=== PATIENT | male | born 1960 | race Caucasian/White ===

== ENCOUNTER 2018-04-14 17:54 | Inpatient (IN) | payer OTHER, MEDICAID ==
[~2018-04-14] VITALS: Ht 170.2 cm; Wt 103.9 kg
[2018-04-14 18:50] VITALS: BP_SYST 144
[2018-04-14] MEDS ORDERED: ACET325C4 PO (19:33)
[2018-04-14] MEDS ORDERED: OXYB5TAB11 PO (19:33)
[2018-04-14] MEDS ORDERED: GABA-533 PO (19:33)
[2018-04-14] MEDS ORDERED: GABA-531 PO (19:33)
[2018-04-14] MEDS ORDERED: BISA5TAB10 PO (19:33)
[2018-04-14] MEDS ORDERED: CRAN1TAB5 PO (19:33)
[2018-04-14] MEDS ORDERED: TAMS-11 PO (19:33)
[2018-04-14] MEDS ORDERED: DOCU-144 PO (19:33)
[2018-04-14] MEDS ORDERED: AMAN100C16 PO (19:33)
[2018-04-14] MEDS ORDERED: PSYL1POW MC (19:33)
[2018-04-14] MEDS ORDERED: MELA3TAB PO (19:33)
[2018-04-14] MEDS ORDERED: MOM PO (19:33)
[2018-04-14] MEDS ORDERED: CHOL500037 PO (19:33)
[2018-04-14] MEDS ORDERED: LACT10SO6 PO (19:33)
[2018-04-14] MEDS ORDERED: BISA-79 PO (19:33)
[2018-04-14] MEDS ORDERED: INSU100I26 SQ (19:33)
[2018-04-14 19:38] VITALS: BP_SYST 144
[2018-04-14] MEDS ORDERED: INSULIN REGULAR, HUMAN 100 UNITS/ML, 10 ML VIAL (novoLIN R) SUBCUT PRN (20:30)
[2018-04-14] MEDS ORDERED: CEFEPIME 1 GM/VIAL (MAXIPIME) ONE (21:04)
[2018-04-14 21:12] LABS: BASOPHILS % (AUTO) 0.3 % (0.0-2.0); EOSINOPHILS # (AUTO) 0.1 K/uL (0.0-0.4); EOSINOPHILS % (AUTO) 1.8 % (0.0-4.0); HEMATOCRIT 46.8 % (36-54); HEMOGLOBIN 15.4 g/dL (14.0-18.0); LYMPHOCYTES # (AUTO) 0.7 K/uL (1.0-5.5); MEAN CORPUSCULAR HEMOGLOBIN 30 pg (27-31); MEAN CORPUSCULAR HGB CONC 33 % (32-36); MEAN CORPUSCULAR VOLUME 92 fL (79.0-98.0); MONOCYTES # (AUTO) 0.3 K/uL (0.0-1.0); NEUTROPHILS # (AUTO) 2.7 K/uL (1.8-7.7); NEUTROPHILS % (AUTO) 72.9 % (40.0-70.0); RED BLOOD CELL COUNT(AUTO) 5.08 MIL/uL (4.2-6.2); RED CELL DISTRIBUTION WIDTH 13.5 % (9.0-15.0); WHITE BLOOD COUNT (AUTO) 3.8 K/uL (4.8-10.8)
[2018-04-14 21:13] LABS: BILIRUBIN,URINE NEGATIVE (NEGATIVE); BLOOD, URINE TRACE (NEGATIVE); CLARITY/URINE HAZY (CLEAR); COLOR,URINE YELLOW (YELLOW); GLUCOSE,URINE 3+ (NEGATIVE); KETONES,URINE TRACE (NEGATIVE); LEUKOCYTE ESTERASE ,URINE 1+ (NEGATIVE); NITRITE, URINE NEGATIVE (NEGATIVE); PH,URINE 5.5 (5.0-8.0); PROTEIN URINE NEGATIVE (NEGATIVE)
[2018-04-14 21:14] LABS: BACTERIA,URINE FEW /HPF (None Seen); MUCUS,URINE None Seen /LPF (None Seen); RBC,URINE NONE SEEN /HPF (0-3)
[2018-04-14 21:20] LABS: CALCIUM 8.9 mg/dL (8.4-11.0); CREATININE 0.86 mg/dL (0.55-1.30); POTASSIUM 4.9 mmol/L (3.5-5.1)
[2018-04-14 21:25] LABS: ALBUMIN 3.2 g/dL (3.4-4.8); TOTAL BILIRUBIN 1.1 mg/dL (0.0-1.0)
[2018-04-14] MEDS: NYSTATIN 30 GM TOPICAL CREAM TP SCH (21:30)
[2018-04-14] MEDS ORDERED: MILK OF MAGNESIA 30 ML UDC PO PRN (21:30)
[2018-04-14] MEDS ORDERED: BISACODYL 5 MG TABLET.DR (DULCOLAX) PO PRN (21:30)
[2018-04-14] MEDS ORDERED: ACETAMINOPHEN 325 MG TABLET PO PRN (21:30)
[2018-04-14 21:37] LABS: PLATELET COUNT (AUTO) 85 K/uL (130-430)
[2018-04-14] MEDS: KCL 20 mEq in D5/0.45NS 1000mL 1,000 ML IV SCH (22:35)
[2018-04-14] MEDS: CEFEPIME 1 GM in D5W 50 ML IV SCH (22:36)
[2018-04-14 22:47] VITALS: BP_SYST 124
[2018-04-14] MEDS: INSULIN REGULAR, HUMAN 100 UNITS/ML, 10 ML VIAL (novoLIN R) SUBCUT PRN (23:26)
[2018-04-15] MEDS ORDERED: TEMAZEPAM 15 MG CAPSULE PO ONE (00:15)
[2018-04-15] MEDS: INSULIN REGULAR, HUMAN 100 UNITS/ML, 10 ML VIAL (novoLIN R) SUBCUT PRN ×4 (05:46→23:31)
[2018-04-15 08:00] VITALS: BP_SYST 108
[2018-04-15] MEDS: OXYBUTYNIN CHLORIDE 5 MG TABLET PO SCH (08:36)
[2018-04-15] MEDS: AMANTADINE HCL 100 MG CAP PO SCH ×2 (08:37→20:34)
[2018-04-15] MEDS: CHOLECALCIFEROL (VITAMIN D3) 2,000 UNIT TABLET PO SCH (08:37)
[2018-04-15] MEDS: DOCUSATE SODIUM 100 MG CAPSULE PO SCH ×2 (08:37→20:34)
[2018-04-15] MEDS: VALSARTAN 160 MG TABLET (DIOVAN) PO SCH (08:37)
[2018-04-15] MEDS: LACTULOSE 20 GM/30 ML UDC PO SCH ×2 (08:38→20:34)
[2018-04-15] MEDS: CEFEPIME 1 GM in D5W 50 ML IV SCH ×2 (08:42→20:33)
[2018-04-15] MEDS ORDERED: ENOXAPARIN SODIUM 40 MG/0.4 ML SYRINGE SUBCUT SCH (09:00)
[2018-04-15 11:26] VITALS: BP_SYST 134
[2018-04-15] MEDS: KCL 20 mEq in D5/0.45NS 1000mL 1,000 ML IV SCH (11:27)
[2018-04-15 15:27] VITALS: BP_SYST 127
[2018-04-15] MEDS: NYSTATIN 30 GM TOPICAL CREAM TP SCH ×2 (16:06→20:33)
[2018-04-15] MEDS: FLUCONAZOLE 100 mg/ NS 50 ML IV SCH (16:06)
[2018-04-15] MEDS: GABAPENTIN 300 MG CAPSULE PO SCH (20:33)
[2018-04-15] MEDS: TAMSULOSIN HCL 0.4 MG CAP PO SCH (20:34)
[2018-04-15] MEDS: MELATONIN 3 MG PO SCH (20:38)
[2018-04-15] MEDS ORDERED: ENOXAPARIN SODIUM 30 MG/0.3 ML SYRINGE SUBCUT SCH (21:00)
[2018-04-16 00:22] VITALS: BP_SYST 128
[2018-04-16] MEDS: INSULIN REGULAR, HUMAN 100 UNITS/ML, 10 ML VIAL (novoLIN R) SUBCUT PRN ×3 (05:48→17:26)
[2018-04-16] MEDS: KCL 20 mEq in D5/0.45NS 1000mL 1,000 ML IV SCH ×2 (05:49→14:40)
[2018-04-16 07:30] VITALS: BP_SYST 113
[2018-04-16] MEDS: CEFEPIME 1 GM in D5W 50 ML IV SCH ×2 (08:15→20:44)
[2018-04-16] MEDS: DOCUSATE SODIUM 100 MG CAPSULE PO SCH ×2 (08:15→20:44)
[2018-04-16] MEDS: AMANTADINE HCL 100 MG CAP PO SCH ×2 (08:16→20:44)
[2018-04-16] MEDS: VALSARTAN 160 MG TABLET (DIOVAN) PO SCH (08:16)
[2018-04-16] MEDS: OXYBUTYNIN CHLORIDE 5 MG TABLET PO SCH (08:16)
[2018-04-16] MEDS: NYSTATIN 30 GM TOPICAL CREAM TP SCH ×2 (08:17→20:44)
[2018-04-16] MEDS: CHOLECALCIFEROL (VITAMIN D3) 2,000 UNIT TABLET PO SCH (08:17)
[2018-04-16] MEDS: LACTULOSE 20 GM/30 ML UDC PO SCH ×2 (08:18→20:45)
[2018-04-16] MEDS: FLUCONAZOLE 100 mg/ NS 50 ML IV SCH (10:12)
[2018-04-16 11:22] VITALS: BP_SYST 104
[2018-04-16 16:27] VITALS: BP_SYST 115
[2018-04-16 20:00] VITALS: BP_SYST 142
[2018-04-16] MEDS: GABAPENTIN 300 MG CAPSULE PO SCH (20:44)
[2018-04-16] MEDS: TAMSULOSIN HCL 0.4 MG CAP PO SCH (20:44)
[2018-04-16] MEDS: MELATONIN 3 MG PO SCH (21:00)
[2018-04-16] MEDS ORDERED: TEMAZEPAM 15 MG CAPSULE PO PRN (21:45)
[2018-04-17 00:02] VITALS: BP_SYST 115
[2018-04-17] MEDS: KCL 20 mEq in D5/0.45NS 1000mL 1,000 ML IV SCH ×2 (02:53→17:18)
[2018-04-17] MEDS: INSULIN REGULAR, HUMAN 100 UNITS/ML, 10 ML VIAL (novoLIN R) SUBCUT PRN ×3 (05:33→17:24)
[2018-04-17] MEDS: CEFEPIME 1 GM in D5W 50 ML IV SCH (09:51)
[2018-04-17] MEDS: LACTULOSE 20 GM/30 ML UDC PO SCH (09:51)
[2018-04-17] MEDS: DOCUSATE SODIUM 100 MG CAPSULE PO SCH (09:51)
[2018-04-17] MEDS: CHOLECALCIFEROL (VITAMIN D3) 2,000 UNIT TABLET PO SCH (09:53)
[2018-04-17] MEDS: OXYBUTYNIN CHLORIDE 5 MG TABLET PO SCH (09:53)
[2018-04-17] MEDS: VALSARTAN 160 MG TABLET (DIOVAN) PO SCH (09:53)
[2018-04-17] MEDS: AMANTADINE HCL 100 MG CAP PO SCH (09:53)
[2018-04-17] MEDS: NYSTATIN 30 GM TOPICAL CREAM TP SCH (09:54)
[2018-04-17 10:25] VITALS: BP_SYST 109
[2018-04-17] MEDS: FLUCONAZOLE 100 mg/ NS 50 ML IV SCH (11:20)
[2018-04-17 12:54] VITALS: BP_SYST 124
[2018-04-17 16:30] VITALS: BP_SYST 126
[2018-04-17 19:38] VITALS: BP_SYST 118
== END 2018-04-17 20:55 | DRG 871 ==
LOC: SMU 19:01 → STU 19:08 → SMU 04-15 17:00
PROVIDERS: ADMIT Family Medicine; ATTEND Family Medicine
DX: A41.9 Sepsis, unspecified organism (principal); G93.41 Metabolic encephalopathy; N39.0 Urinary tract infection, site not specified; D61.818 Other pancytopenia; B36.9 Superficial mycosis, unspecified; Z87.440 Personal history of urinary (tract) infections; N40.0 Benign prostatic hyperplasia without lower urinary tract symptoms; E11.9 Type 2 diabetes mellitus without complications; I10 Essential (primary) hypertension
CPT/HCPCS: 36415; 76770; 80053; 81000-TC; 82962; 85025; 87081; 87086; G0378; J0692; J1450; J1815; J7060

== ENCOUNTER 2019-04-03 19:47 | Inpatient (IN) | payer OTHER, MEDICAID ==
[~2019-04-03] VITALS: Ht 170.2 cm; Wt 102.1 kg
[~2019-04-03 19:47] MED LIST: ACET325C6 PO; AMAN100C16 PO; BISA-79 PO; CHOL500037 PO; CRAN1TAB5 PO; DOCU-144 PO; GABA-531 PO; GABA-533 PO; INSU100I26 SQ; LACT10SO6 PO; MELA3TAB64 PO; MOM PO; OXYB5TAB11 PO; PSYL1POW MC; TAMS-11 PO
[2019-04-03 20:01] VITALS: BP_SYST 149
[2019-04-03] MEDS ORDERED: ACETAMINOPHEN 500 MG TABLET PO ONE (21:00)
[2019-04-03] MEDS ORDERED: cefTRIAXone 1 GM in D5W 50 ML IV ONE (21:00)
[2019-04-03] MEDS ORDERED: NACL 0.9% 1,000 ML IV ONE ×2 (21:00→22:15)
[2019-04-03] MEDS ORDERED: cefTRIAXone 1 GM VIAL ONE (21:22)
[2019-04-03 22:04] LABS: BASOPHILS % (AUTO) 0.3 % (0.0-2.0); EOSINOPHILS % (AUTO) 0.6 % (0.0-4.0); HEMATOCRIT 30.5 % (36-54); HEMOGLOBIN 10.3 g/dL (14.0-18.0); LYMPHOCYTES # (AUTO) 0.3 K/uL (1.0-5.5); LYMPHOCYTES % (AUTO) 5.5 % (20.5-51.5); MEAN CORPUSCULAR HEMOGLOBIN 28 pg (27-31); MEAN CORPUSCULAR HGB CONC 34 % (32-36); MEAN CORPUSCULAR VOLUME 82 fL (79.0-98.0); MONOCYTES # (AUTO) 0.4 K/uL (0.0-1.0); MONOCYTES % (AUTO) 8.5 % (1.7-9.3); NEUTROPHILS # (AUTO) 4.1 K/uL (1.8-7.7); NEUTROPHILS % (AUTO) 85.1 % (40.0-70.0); PLATELET COUNT (AUTO) 107 K/uL (130-430); RED BLOOD CELL COUNT(AUTO) 3.72 MIL/uL (4.2-6.2); RED CELL DISTRIBUTION WIDTH 16.3 % (9.0-15.0); WHITE BLOOD COUNT (AUTO) 4.8 K/uL (4.8-10.8)
[2019-04-03] MEDS ORDERED: AZITHROMYCIN 500 MG in NS 250 ML IV ONE (22:15)
[2019-04-03 22:23] LABS: CALCIUM 8.1 mg/dL (8.4-11.0); CREATININE 0.76 mg/dL (0.55-1.30); POTASSIUM 3.8 mmol/L (3.5-5.1)
[2019-04-03 22:28] LABS: ALBUMIN 2.5 g/dL (3.4-4.8); TOTAL BILIRUBIN 1.1 mg/dL (0.0-1.0)
[2019-04-03 22:54] LABS: BILIRUBIN,URINE NEGATIVE (NEGATIVE); BLOOD, URINE 1+ (NEGATIVE); CLARITY/URINE CLEAR (CLEAR); COLOR,URINE YELLOW (YELLOW); GLUCOSE,URINE TRACE (NEGATIVE); KETONES,URINE NEGATIVE (NEGATIVE); LEUKOCYTE ESTERASE ,URINE TRACE (NEGATIVE); NITRITE, URINE POSITIVE (NEGATIVE); PH,URINE 5.5 (5.0-8.0); PROTEIN URINE TRACE (NEGATIVE); UROBILINOGEN,URINE 0.2 (0.2-1.0)
[2019-04-03 23:01] LABS: WBC,URINE 50-80 /HPF (0-3)
[2019-04-03 23:02] LABS: BACTERIA,URINE MANY /HPF (None Seen)
[2019-04-04] MEDS ORDERED: KCL 20 mEq in D5/0.45NS 1000mL 1,000 ML IV ONE (01:00)
[2019-04-04] MEDS ORDERED: AZITHROMYCIN 500 MG/VIAL (ZITHROMAX) IV ONE ×2 (01:09→01:24)
[2019-04-04] MEDS ORDERED: LACT10SO7 PO (01:53)
[2019-04-04] MEDS ORDERED: INSU100I20 SQ (01:53)
[2019-04-04] MEDS: LevALBUTEROL HCL 1.25 MG/0.5 ML *CONC.* VIAL.NEB (XOPENEX CONC.) INH SCH ×4 (02:39→18:00)
[2019-04-04 08:47] VITALS: BP_SYST 106
[2019-04-04 09:00] VITALS: BP_SYST 132
[2019-04-04] MEDS: ACETAMINOPHEN 325 MG TABLET PO PRN (09:53)
[2019-04-04] MEDS ORDERED: FLUCONAZOLE 200 MG TABLET (DIFLUCAN) PO ONE (12:30)
[2019-04-04] MEDS: GENTAMICIN 80 MG/ ISO-OSM 100 ML PREMIX IV SCH (13:48)
[2019-04-04] MEDS ORDERED: OXYBUTYNIN CHLORIDE 5 MG TABLET PO ONE (14:00)
[2019-04-04] MEDS ORDERED: AMANTADINE HCL 100 MG CAP PO ONE (14:00)
[2019-04-04] MEDS ORDERED: GLUCOSE 15 GM GEL (in 37.5 GM TUBE) PO PRN (14:00)
[2019-04-04] MEDS ORDERED: LACTULOSE 20 GM/30 ML UDC PO ONE (14:00)
[2019-04-04] MEDS ORDERED: DOCUSATE SODIUM 100 MG CAPSULE PO ONE (14:00)
[2019-04-04] MEDS ORDERED: D5W 1,000 ML IV PRN (14:00)
[2019-04-04] MEDS ORDERED: GABAPENTIN 300 MG CAPSULE PO ONE (14:00)
[2019-04-04] MEDS ORDERED: DEXTROSE 50%-WATER 50 ML DISP.SYRIN IVP PRN (14:00)
[2019-04-04 17:17] VITALS: BP_SYST 151
[2019-04-04] MEDS: INSULIN REGULAR, HUMAN 100 UNITS/ML, 10 ML VIAL (humuLIN R) SUBCUT PRN ×2 (18:11→23:16)
[2019-04-04 20:00] VITALS: BP_SYST 124
[2019-04-04] MEDS: LACTULOSE 20 GM/30 ML UDC PO SCH (21:48)
[2019-04-04] MEDS: TAMSULOSIN HCL 0.4 MG CAP PO SCH (21:49)
[2019-04-04] MEDS: ENOXAPARIN SODIUM 40 MG/0.4 ML SYRINGE SUBCUT SCH (21:51)
[2019-04-04] MEDS: AZITHROMYCIN 500 MG in NS 250 ML IV SCH (22:07)
[2019-04-04] MEDS: GABAPENTIN 300 MG CAPSULE PO SCH (22:11)
[2019-04-04] MEDS: MELATONIN 3 MG TABLET PO SCH (22:11)
[2019-04-04] MEDS: NYSTATIN 15 GM TOPICAL POWDER TP SCH (22:12)
[2019-04-04] MEDS: AMANTADINE HCL 100 MG CAP PO SCH (22:12)
[2019-04-04] MEDS: cefTRIAXone 1 GM IVPB PREMIX 50 ML IV SCH (23:04)
[2019-04-04] MEDS: INSULIN GLARGINE 100 UNITS/ML 10 ML VIAL SUBCUT SCH (23:15)
[2019-04-05] MEDS ORDERED: HALOPERIDOL LACTATE 5 MG/ML VIAL IM SCH
[2019-04-05] MEDS: GENTAMICIN 80 MG/ ISO-OSM 100 ML PREMIX IV SCH ×4 (00:07→22:21)
[2019-04-05 01:15] VITALS: BP_SYST 137
[2019-04-05] MEDS: LevALBUTEROL HCL 1.25 MG/0.5 ML *CONC.* VIAL.NEB (XOPENEX CONC.) INH SCH ×4 (06:00→19:25)
[2019-04-05 08:00] VITALS: BP_SYST 115
[2019-04-05] MEDS ORDERED: LevALBUTEROL HCL 1.25 MG/0.5 ML *CONC.* VIAL.NEB (XOPENEX CONC.) INH ONE ×2 (08:44→16:29)
[2019-04-05] MEDS: NYSTATIN 15 GM TOPICAL POWDER TP SCH ×2 (09:08→22:20)
[2019-04-05] MEDS: LACTULOSE 20 GM/30 ML UDC PO SCH ×2 (09:09→21:40)
[2019-04-05] MEDS: GABAPENTIN 300 MG CAPSULE PO SCH ×2 (09:09→21:46)
[2019-04-05] MEDS: DOCUSATE SODIUM 100 MG CAPSULE PO SCH (09:09)
[2019-04-05] MEDS: AMANTADINE HCL 100 MG CAP PO SCH ×2 (09:09→21:40)
[2019-04-05] MEDS: OXYBUTYNIN CHLORIDE 5 MG TABLET PO SCH (09:10)
[2019-04-05] MEDS: FLUCONAZOLE 200 MG TABLET (DIFLUCAN) PO SCH (09:10)
[2019-04-05] MEDS: INSULIN GLARGINE 100 UNITS/ML 10 ML VIAL SUBCUT SCH ×2 (09:12→22:18)
[2019-04-05] MEDS: ACETAMINOPHEN 325 MG TABLET PO PRN ×2 (09:39→15:27)
[2019-04-05] MEDS ORDERED: HALOPERIDOL LACTATE 5 MG/ML VIAL IM ONE (10:45)
[2019-04-05] MEDS ORDERED: HALOPERIDOL LACTATE 5 MG/ML VIAL ONE (10:49)
[2019-04-05] MEDS: INSULIN REGULAR, HUMAN 100 UNITS/ML, 10 ML VIAL (humuLIN R) SUBCUT PRN ×2 (11:27→17:29)
[2019-04-05 12:25] VITALS: BP_SYST 127
[2019-04-05] MEDS ORDERED: QUEtiapine FUMARATE 25 MG TABLET PO ONE (12:45)
[2019-04-05] MEDS: QUEtiapine FUMARATE 25 MG TABLET PO SCH ×2 (15:03→21:46)
[2019-04-05] MEDS: HALOPERIDOL LACTATE 5 MG/ML VIAL IM PRN (15:18)
[2019-04-05 16:10] VITALS: BP_SYST 164
[2019-04-05 16:54] LABS: BASOPHILS % (AUTO) 0.1 % (0.0-2.0); EOSINOPHILS % (AUTO) 0.1 % (0.0-4.0); HEMATOCRIT 29.8 % (36-54); HEMOGLOBIN 9.8 g/dL (14.0-18.0); LYMPHOCYTES # (AUTO) 0.2 K/uL (1.0-5.5); LYMPHOCYTES % (AUTO) 5.6 % (20.5-51.5); MEAN CORPUSCULAR HEMOGLOBIN 27 pg (27-31); MEAN CORPUSCULAR HGB CONC 33 % (32-36); MEAN CORPUSCULAR VOLUME 83 fL (79.0-98.0); MONOCYTES # (AUTO) 0.2 K/uL (0.0-1.0); MONOCYTES % (AUTO) 6.3 % (1.7-9.3); NEUTROPHILS # (AUTO) 3.2 K/uL (1.8-7.7); NEUTROPHILS % (AUTO) 87.9 % (40.0-70.0); PLATELET COUNT (AUTO) 56 K/uL (130-430); RED BLOOD CELL COUNT(AUTO) 3.59 MIL/uL (4.2-6.2); RED CELL DISTRIBUTION WIDTH 16.2 % (9.0-15.0); WHITE BLOOD COUNT (AUTO) 3.6 K/uL (4.8-10.8)
[2019-04-05 17:09] LABS: CALCIUM 7.8 mg/dL (8.4-11.0); POTASSIUM 3.9 mmol/L (3.5-5.1)
[2019-04-05 17:15] LABS: ALBUMIN 2.4 g/dL (3.4-4.8); TOTAL BILIRUBIN 1.7 mg/dL (0.0-1.0)
[2019-04-05] MEDS ORDERED: 0.45% NACL 1,000 ML IV SCH (17:16)
[2019-04-05] MEDS: NACL 0.9% 1,000 ML IV SCH (17:58)
[2019-04-05 20:55] VITALS: BP_SYST 115
[2019-04-05] MEDS: cefTRIAXone 1 GM IVPB PREMIX 50 ML IV SCH (21:14)
[2019-04-05] MEDS: TAMSULOSIN HCL 0.4 MG CAP PO SCH (21:46)
[2019-04-05] MEDS: ENOXAPARIN SODIUM 40 MG/0.4 ML SYRINGE SUBCUT SCH (22:36)
[2019-04-05] MEDS: MELATONIN 3 MG TABLET PO SCH (22:47)
[2019-04-05] MEDS: AZITHROMYCIN 500 MG in NS 250 ML IV SCH (22:48)
[2019-04-06] MEDS: INSULIN REGULAR, HUMAN 100 UNITS/ML, 10 ML VIAL (humuLIN R) SUBCUT PRN ×5 (00:05→21:05)
[2019-04-06 00:43] VITALS: BP_SYST 104
[2019-04-06] MEDS: GENTAMICIN 80 MG/ ISO-OSM 100 ML PREMIX IV SCH ×3 (05:15→20:59)
[2019-04-06] MEDS: NACL 0.9% 1,000 ML IV SCH ×2 (05:16→15:04)
[2019-04-06 06:19] LABS: HEMATOCRIT 29.5 % (36-54); HEMOGLOBIN 9.6 g/dL (14.0-18.0); MEAN CORPUSCULAR HEMOGLOBIN 27 pg (27-31); MEAN CORPUSCULAR HGB CONC 33 % (32-36); MEAN CORPUSCULAR VOLUME 83 fL (79.0-98.0); PLATELET COUNT (AUTO) 54 K/uL (130-430); RED BLOOD CELL COUNT(AUTO) 3.56 MIL/uL (4.2-6.2); RED CELL DISTRIBUTION WIDTH 16.6 % (9.0-15.0); WHITE BLOOD COUNT (AUTO) 2.9 K/uL (4.8-10.8)
[2019-04-06 07:27] LABS: ALBUMIN 2.3 g/dL (3.4-4.8); CALCIUM 7.7 mg/dL (8.4-11.0); CREATININE 0.88 mg/dL (0.55-1.30); PHOSPHORUS 2.2 mg/dL (2.7-4.5); POTASSIUM 3.8 mmol/L (3.5-5.1); TOTAL BILIRUBIN 1.4 mg/dL (0.0-1.0)
[2019-04-06 07:31] LABS: ATYPICAL LYMPHOCYTES % 0 % (0-0); BAND % (MANUAL) 6 % (0-6); BASOPHILS % (MANUAL) 0 % (0-2); EOSINOPHILS % (MANUAL) 0 % (0-7); LYMPHOCYTES % (MANUAL) 8 % (20-46); MONOCYTES % (MANUAL) 8 % (0-11)
[2019-04-06] MEDS: LevALBUTEROL HCL 1.25 MG/0.5 ML *CONC.* VIAL.NEB (XOPENEX CONC.) INH SCH ×4 (07:41→19:34)
[2019-04-06 08:00] VITALS: BP_SYST 122
[2019-04-06] MEDS: AMANTADINE HCL 100 MG CAP PO SCH ×2 (08:43→20:35)
[2019-04-06] MEDS: FLUCONAZOLE 200 MG TABLET (DIFLUCAN) PO SCH (08:43)
[2019-04-06] MEDS: GABAPENTIN 300 MG CAPSULE PO SCH ×2 (08:44→20:36)
[2019-04-06] MEDS: QUEtiapine FUMARATE 25 MG TABLET PO SCH ×3 (08:44→20:41)
[2019-04-06] MEDS: OXYBUTYNIN CHLORIDE 5 MG TABLET PO SCH (08:44)
[2019-04-06] MEDS: NYSTATIN 15 GM TOPICAL POWDER TP SCH ×2 (08:44→20:55)
[2019-04-06] MEDS: INSULIN GLARGINE 100 UNITS/ML 10 ML VIAL SUBCUT SCH ×2 (08:47→21:02)
[2019-04-06] MEDS: LACTULOSE 20 GM/30 ML UDC PO SCH ×2 (09:00→20:43)
[2019-04-06] MEDS ORDERED: QUEtiapine FUMARATE 25 MG TABLET PO SCH (09:00)
[2019-04-06] MEDS: DOCUSATE SODIUM 100 MG CAPSULE PO SCH (09:00)
[2019-04-06 12:39] VITALS: BP_SYST 127
[2019-04-06 16:53] VITALS: BP_SYST 124
[2019-04-06 20:00] VITALS: BP_SYST 122
[2019-04-06] MEDS: ENOXAPARIN SODIUM 40 MG/0.4 ML SYRINGE SUBCUT SCH (20:35)
[2019-04-06] MEDS: ACETAMINOPHEN 325 MG TABLET PO PRN (20:38)
[2019-04-06] MEDS: TAMSULOSIN HCL 0.4 MG CAP PO SCH (20:38)
[2019-04-06] MEDS: MELATONIN 3 MG TABLET PO SCH (20:39)
[2019-04-06] MEDS: AZITHROMYCIN 500 MG in NS 250 ML IV SCH (21:06)
[2019-04-06] MEDS ORDERED: IPRATROPIUM/ALBUTEROL SULFATE 3 ML AMPUL.NEB (DUONEB) INH PRN (22:15)
[2019-04-06] MEDS: IPRATROPIUM/ALBUTEROL SULFATE 3 ML AMPUL.NEB (DUONEB) INH SCH (22:33)
[2019-04-06] MEDS: methylPREDNISolone SOD SUCC/PF 62.5 MG/ML VIAL IVP SCH (22:43)
[2019-04-07] VITALS (7 sets, daily range): BP systolic 102–120
[2019-04-07] MEDS: NACL 0.9% 1,000 ML IV SCH ×3 (03:37→14:57)
[2019-04-07] MEDS: methylPREDNISolone SOD SUCC/PF 62.5 MG/ML VIAL IVP SCH ×3 (05:35→22:13)
[2019-04-07] MEDS: GENTAMICIN 80 MG/ ISO-OSM 100 ML PREMIX IV SCH ×3 (05:36→22:17)
[2019-04-07] MEDS: INSULIN REGULAR, HUMAN 100 UNITS/ML, 10 ML VIAL (humuLIN R) SUBCUT PRN ×4 (05:43→21:30)
[2019-04-07] MEDS: IPRATROPIUM/ALBUTEROL SULFATE 3 ML AMPUL.NEB (DUONEB) INH SCH ×2 (07:23→13:53)
[2019-04-07] MEDS: QUEtiapine FUMARATE 25 MG TABLET PO SCH ×3 (08:07→21:24)
[2019-04-07] MEDS: GABAPENTIN 300 MG CAPSULE PO SCH ×2 (08:07→21:25)
[2019-04-07] MEDS: AMANTADINE HCL 100 MG CAP PO SCH ×2 (08:07→21:25)
[2019-04-07] MEDS: OXYBUTYNIN CHLORIDE 5 MG TABLET PO SCH (08:08)
[2019-04-07] MEDS: LACTULOSE 20 GM/30 ML UDC PO SCH ×2 (08:08→21:24)
[2019-04-07] MEDS: DOCUSATE SODIUM 100 MG CAPSULE PO SCH (08:08)
[2019-04-07] MEDS: FLUCONAZOLE 200 MG TABLET (DIFLUCAN) PO SCH (08:08)
[2019-04-07] MEDS: INSULIN GLARGINE 100 UNITS/ML 10 ML VIAL SUBCUT SCH ×2 (08:10→21:29)
[2019-04-07] MEDS: NYSTATIN 15 GM TOPICAL POWDER TP SCH ×2 (08:11→21:24)
[2019-04-07] MEDS: LORazepam 1 MG TABLET PO PRN (17:26)
[2019-04-07] MEDS ORDERED: INSULIN REGULAR, HUMAN 100 UNITS/ML, 10 ML VIAL SUBCUT ONE ×2 (17:30→22:00)
[2019-04-07] MEDS: LevALBUTEROL HCL 1.25 MG/0.5 ML *CONC.* VIAL.NEB (XOPENEX CONC.) INH SCH ×2 (19:36)
[2019-04-07] MEDS: TAMSULOSIN HCL 0.4 MG CAP PO SCH (21:24)
[2019-04-07] MEDS: AZITHROMYCIN 500 MG in NS 250 ML IV SCH (21:26)
[2019-04-07] MEDS: MELATONIN 3 MG TABLET PO SCH (21:26)
[2019-04-07] MEDS: ENOXAPARIN SODIUM 40 MG/0.4 ML SYRINGE SUBCUT SCH (21:28)
[2019-04-08] VITALS: BP_SYST 112
[2019-04-08] MEDS: GENTAMICIN 80 MG/ ISO-OSM 100 ML PREMIX IV SCH ×3 (05:58→21:22)
[2019-04-08] MEDS: methylPREDNISolone SOD SUCC/PF 62.5 MG/ML VIAL IVP SCH (05:58)
[2019-04-08] MEDS: INSULIN REGULAR, HUMAN 100 UNITS/ML, 10 ML VIAL (humuLIN R) SUBCUT PRN ×4 (05:59→20:24)
[2019-04-08] MEDS: LevALBUTEROL HCL 1.25 MG/0.5 ML *CONC.* VIAL.NEB (XOPENEX CONC.) INH SCH ×4 (06:00→18:00)
[2019-04-08] MEDS: NACL 0.9% 1,000 ML IV SCH ×2 (06:02→17:29)
[2019-04-08 06:33] LABS: BASOPHILS % (AUTO) 0.1 % (0.0-2.0); EOSINOPHILS % (AUTO) 0.1 % (0.0-4.0); HEMATOCRIT 27.9 % (36-54); HEMOGLOBIN 9.1 g/dL (14.0-18.0); LYMPHOCYTES # (AUTO) 0.2 K/uL (1.0-5.5); LYMPHOCYTES % (AUTO) 7.6 % (20.5-51.5); MEAN CORPUSCULAR HEMOGLOBIN 27 pg (27-31); MEAN CORPUSCULAR HGB CONC 33 % (32-36); MEAN CORPUSCULAR VOLUME 83 fL (79.0-98.0); MONOCYTES # (AUTO) 0.1 K/uL (0.0-1.0); MONOCYTES % (AUTO) 3.7 % (1.7-9.3); NEUTROPHILS # (AUTO) 1.7 K/uL (1.8-7.7); PLATELET COUNT (AUTO) 56 K/uL (130-430); RED BLOOD CELL COUNT(AUTO) 3.36 MIL/uL (4.2-6.2); RED CELL DISTRIBUTION WIDTH 17.1 % (9.0-15.0)
[2019-04-08 06:58] LABS: ALBUMIN 2.1 g/dL (3.4-4.8); CALCIUM 7.9 mg/dL (8.4-11.0); CREATININE 0.67 mg/dL (0.55-1.30); POTASSIUM 4.4 mmol/L (3.5-5.1); TOTAL BILIRUBIN 0.7 mg/dL (0.0-1.0)
[2019-04-08] MEDS: IPRATROPIUM/ALBUTEROL SULFATE 3 ML AMPUL.NEB (DUONEB) INH SCH ×3 (07:01→20:11)
[2019-04-08 07:23] VITALS: BP_SYST 107
[2019-04-08 07:38] LABS: NEUTROPHILS % (AUTO) 88.5 % (40.0-70.0)
[2019-04-08] MEDS: GABAPENTIN 300 MG CAPSULE PO SCH ×2 (08:03→20:17)
[2019-04-08] MEDS: OXYBUTYNIN CHLORIDE 5 MG TABLET PO SCH (08:03)
[2019-04-08] MEDS: FLUCONAZOLE 200 MG TABLET (DIFLUCAN) PO SCH (08:03)
[2019-04-08] MEDS: AMANTADINE HCL 100 MG CAP PO SCH ×2 (08:03→20:17)
[2019-04-08] MEDS: LACTULOSE 20 GM/30 ML UDC PO SCH ×2 (08:04→20:17)
[2019-04-08] MEDS: QUEtiapine FUMARATE 25 MG TABLET PO SCH ×3 (08:04→20:17)
[2019-04-08] MEDS: DOCUSATE SODIUM 100 MG CAPSULE PO SCH ×3 (08:04→20:17)
[2019-04-08] MEDS: NYSTATIN 15 GM TOPICAL POWDER TP SCH ×2 (08:05→20:26)
[2019-04-08] MEDS: INSULIN GLARGINE 100 UNITS/ML 10 ML VIAL SUBCUT SCH ×4 (08:07→20:23)
[2019-04-08] MEDS ORDERED: BISACODYL 10 MG/SUPPOSITORY RC PRN (08:45)
[2019-04-08] MEDS ORDERED: MILK OF MAGNESIA 30 ML UDC PO PRN (08:45)
[2019-04-08 09:01] VITALS: BP_SYST 107
[2019-04-08] MEDS: HALOPERIDOL LACTATE 5 MG/ML VIAL IM PRN (09:58)
[2019-04-08 11:35] VITALS: BP_SYST 116
[2019-04-08 16:34] VITALS: BP_SYST 122
[2019-04-08] MEDS ORDERED: INSULIN REGULAR, HUMAN 100 UNITS/ML, 10 ML VIAL SUBCUT ONE (17:15)
[2019-04-08] MEDS: methylPREDNISolone SOD SUCC 40 MG/ML VIAL IVP SCH (18:03)
[2019-04-08 20:00] VITALS: BP_SYST 118
[2019-04-08] MEDS: TAMSULOSIN HCL 0.4 MG CAP PO SCH (20:17)
[2019-04-08] MEDS: MELATONIN 3 MG TABLET PO SCH (20:19)
[2019-04-08] MEDS: ENOXAPARIN SODIUM 40 MG/0.4 ML SYRINGE SUBCUT SCH (20:25)
[2019-04-08] MEDS: LORazepam 1 MG TABLET PO PRN (21:22)
[2019-04-08] MEDS: AZITHROMYCIN 500 MG in NS 250 ML IV SCH (22:31)
[2019-04-09] VITALS: BP_SYST 112
[2019-04-09] MEDS: IPRATROPIUM/ALBUTEROL SULFATE 3 ML AMPUL.NEB (DUONEB) INH SCH ×4 (00:50→19:52)
[2019-04-09] MEDS: GENTAMICIN 80 MG/ ISO-OSM 100 ML PREMIX IV SCH ×2 (05:17→13:06)
[2019-04-09] MEDS: LevALBUTEROL HCL 1.25 MG/0.5 ML *CONC.* VIAL.NEB (XOPENEX CONC.) INH SCH ×4 (06:00→19:47)
[2019-04-09] MEDS: methylPREDNISolone SOD SUCC 40 MG/ML VIAL IVP SCH ×2 (06:06→18:30)
[2019-04-09] MEDS: INSULIN REGULAR, HUMAN 100 UNITS/ML, 10 ML VIAL (humuLIN R) SUBCUT PRN ×4 (06:08→21:12)
[2019-04-09 07:43] VITALS: BP_SYST 119
[2019-04-09] MEDS: FLUCONAZOLE 200 MG TABLET (DIFLUCAN) PO SCH (08:02)
[2019-04-09] MEDS: GABAPENTIN 300 MG CAPSULE PO SCH ×2 (08:02→21:07)
[2019-04-09] MEDS: DOCUSATE SODIUM 100 MG CAPSULE PO SCH ×2 (08:02→21:09)
[2019-04-09] MEDS: QUEtiapine FUMARATE 25 MG TABLET PO SCH ×2 (08:02→15:00)
[2019-04-09] MEDS: AMANTADINE HCL 100 MG CAP PO SCH ×2 (08:02→21:08)
[2019-04-09] MEDS: OXYBUTYNIN CHLORIDE 5 MG TABLET PO SCH (08:02)
[2019-04-09] MEDS: NYSTATIN 15 GM TOPICAL POWDER TP SCH ×2 (08:02→21:36)
[2019-04-09] MEDS: LACTULOSE 20 GM/30 ML UDC PO SCH ×2 (08:03→21:06)
[2019-04-09 08:10] LABS: BASOPHILS % (AUTO) 0.1 % (0.0-2.0); EOSINOPHILS % (AUTO) 0.1 % (0.0-4.0); HEMATOCRIT 28.1 % (36-54); HEMOGLOBIN 9.3 g/dL (14.0-18.0); LYMPHOCYTES # (AUTO) 0.2 K/uL (1.0-5.5); LYMPHOCYTES % (AUTO) 8.2 % (20.5-51.5); MEAN CORPUSCULAR HEMOGLOBIN 27 pg (27-31); MEAN CORPUSCULAR HGB CONC 33 % (32-36); MEAN CORPUSCULAR VOLUME 82 fL (79.0-98.0); MONOCYTES # (AUTO) 0.1 K/uL (0.0-1.0); MONOCYTES % (AUTO) 3.9 % (1.7-9.3); NEUTROPHILS # (AUTO) 2.5 K/uL (1.8-7.7); NEUTROPHILS % (AUTO) 87.7 % (40.0-70.0); RED BLOOD CELL COUNT(AUTO) 3.45 MIL/uL (4.2-6.2); RED CELL DISTRIBUTION WIDTH 16.3 % (9.0-15.0); WHITE BLOOD COUNT (AUTO) 2.8 K/uL (4.8-10.8)
[2019-04-09 08:13] LABS: ALBUMIN 2.2 g/dL (3.4-4.8); CALCIUM 8.2 mg/dL (8.4-11.0); CREATININE 0.79 mg/dL (0.55-1.30); POTASSIUM 4.4 mmol/L (3.5-5.1); TOTAL BILIRUBIN 0.7 mg/dL (0.0-1.0)
[2019-04-09] MEDS: INSULIN GLARGINE 100 UNITS/ML 10 ML VIAL SUBCUT SCH ×2 (08:15→21:10)
[2019-04-09 08:37] LABS: PLATELET COUNT (AUTO) 65 K/uL (130-430)
[2019-04-09] MEDS: LORazepam 1 MG TABLET PO PRN ×2 (08:55→21:08)
[2019-04-09] MEDS: HALOPERIDOL LACTATE 5 MG/ML VIAL IM PRN ×4 (08:56→21:12)
[2019-04-09 11:50] VITALS: BP_SYST 117
[2019-04-09] MEDS ORDERED: GENTAMICIN 80 mg/50 mL NS 50 ML IV SCH (14:01)
[2019-04-09 16:00] VITALS: BP_SYST 122
[2019-04-09] MEDS ORDERED: QUEtiapine FUMARATE 25 MG TABLET PO ONE (18:15)
[2019-04-09 20:00] VITALS: BP_SYST 140
[2019-04-09] MEDS: ENOXAPARIN SODIUM 40 MG/0.4 ML SYRINGE SUBCUT SCH (21:07)
[2019-04-09] MEDS: TAMSULOSIN HCL 0.4 MG CAP PO SCH (21:08)
[2019-04-09] MEDS: QUEtiapine FUMARATE 100 MG TABLET PO SCH (21:08)
[2019-04-09] MEDS: MELATONIN 3 MG TABLET PO SCH (21:36)
[2019-04-09] MEDS: GENTAMICIN 100 mg/50 mL NS 50 ML IV SCH (21:36)
[2019-04-10] VITALS: BP_SYST 130
[2019-04-10] MEDS: NACL 0.9% 1,000 ML IV SCH (00:23)
[2019-04-10] MEDS: LORazepam 1 MG TABLET PO PRN ×3 (03:35→23:42)
[2019-04-10 04:00] VITALS: BP_SYST 125
[2019-04-10] MEDS: LevALBUTEROL HCL 1.25 MG/0.5 ML *CONC.* VIAL.NEB (XOPENEX CONC.) INH SCH ×3 (06:00→20:58)
[2019-04-10] MEDS: INSULIN REGULAR, HUMAN 100 UNITS/ML, 10 ML VIAL (humuLIN R) SUBCUT PRN ×4 (06:38→21:48)
[2019-04-10] MEDS: GENTAMICIN 100 mg/50 mL NS 50 ML IV SCH ×3 (06:41→21:51)
[2019-04-10] MEDS: methylPREDNISolone SOD SUCC 40 MG/ML VIAL IVP SCH (06:45)
[2019-04-10] MEDS: IPRATROPIUM/ALBUTEROL SULFATE 3 ML AMPUL.NEB (DUONEB) INH SCH ×2 (08:01→14:26)
[2019-04-10 08:03] VITALS: BP_SYST 109
[2019-04-10] MEDS: LACTULOSE 20 GM/30 ML UDC PO SCH ×2 (09:16→21:46)
[2019-04-10] MEDS: AMANTADINE HCL 100 MG CAP PO SCH ×2 (09:17→21:41)
[2019-04-10] MEDS: NYSTATIN 15 GM TOPICAL POWDER TP SCH ×2 (09:17→21:46)
[2019-04-10] MEDS: GABAPENTIN 300 MG CAPSULE PO SCH ×2 (09:17→21:42)
[2019-04-10] MEDS: QUEtiapine FUMARATE 25 MG TABLET PO SCH ×2 (09:17→21:42)
[2019-04-10] MEDS: OXYBUTYNIN CHLORIDE 5 MG TABLET PO SCH (09:17)
[2019-04-10] MEDS: DOCUSATE SODIUM 100 MG CAPSULE PO SCH ×2 (09:17→21:41)
[2019-04-10] MEDS: FLUCONAZOLE 200 MG TABLET (DIFLUCAN) PO SCH (09:18)
[2019-04-10] MEDS: INSULIN GLARGINE 100 UNITS/ML 10 ML VIAL SUBCUT SCH ×2 (09:20→21:52)
[2019-04-10 12:58] VITALS: BP_SYST 112
[2019-04-10] MEDS: HALOPERIDOL LACTATE 5 MG/ML VIAL IM PRN ×2 (14:52→20:18)
[2019-04-10 16:05] VITALS: BP_SYST 118
[2019-04-10] MEDS: AZITHROMYCIN 500 MG in NS 250 ML IV SCH (17:37)
[2019-04-10] MEDS: TAMSULOSIN HCL 0.4 MG CAP PO SCH (21:42)
[2019-04-10] MEDS: MELATONIN 3 MG TABLET PO SCH (21:42)
[2019-04-10] MEDS: QUEtiapine FUMARATE 100 MG TABLET PO SCH (21:42)
[2019-04-10] MEDS: ENOXAPARIN SODIUM 40 MG/0.4 ML SYRINGE SUBCUT SCH (21:46)
[2019-04-11] VITALS: BP_SYST 126
[2019-04-11] MEDS: IPRATROPIUM/ALBUTEROL SULFATE 3 ML AMPUL.NEB (DUONEB) INH SCH ×4 (01:28→13:46)
[2019-04-11] MEDS: HALOPERIDOL LACTATE 5 MG/ML VIAL IM PRN ×2 (04:52→10:16)
[2019-04-11] MEDS: GENTAMICIN 100 mg/50 mL NS 50 ML IV SCH (06:14)
[2019-04-11 08:00] VITALS: BP_SYST 116
[2019-04-11] MEDS ORDERED: PREDNISONE 20 MG TABLET PO SCH (08:00)
[2019-04-11] MEDS: INSULIN GLARGINE 100 UNITS/ML 10 ML VIAL SUBCUT SCH (08:39)
[2019-04-11] MEDS: LACTULOSE 20 GM/30 ML UDC PO SCH (08:41)
[2019-04-11] MEDS: OXYBUTYNIN CHLORIDE 5 MG TABLET PO SCH (08:41)
[2019-04-11] MEDS: DOCUSATE SODIUM 100 MG CAPSULE PO SCH (08:41)
[2019-04-11] MEDS: LORazepam 1 MG TABLET PO PRN (08:42)
[2019-04-11] MEDS: AMANTADINE HCL 100 MG CAP PO SCH (08:42)
[2019-04-11] MEDS: FLUCONAZOLE 200 MG TABLET (DIFLUCAN) PO SCH (08:42)
[2019-04-11] MEDS: QUEtiapine FUMARATE 25 MG TABLET PO SCH (08:42)
[2019-04-11] MEDS: GABAPENTIN 300 MG CAPSULE PO SCH (08:42)
[2019-04-11] MEDS: NYSTATIN 15 GM TOPICAL POWDER TP SCH (08:56)
[2019-04-11] MEDS ORDERED: QUEtiapine FUMARATE 25 MG TABLET PO ONE (10:45)
[2019-04-11] MEDS ORDERED: clonazePAM 0.5 MG TABLET PO ONE (10:45)
[2019-04-11 12:44] VITALS: BP_SYST 151
[2019-04-11] MEDS ORDERED: QUEtiapine FUMARATE 100 MG TABLET PO SCH (15:00)
[2019-04-11] MEDS ORDERED: clonazePAM 0.5 MG TABLET PO SCH (15:00)
[2019-04-11 16:38] VITALS: BP_SYST 143
[2019-04-11] MEDS: AZITHROMYCIN 500 MG in NS 250 ML IV SCH (16:57)
[2019-04-11 19:59] VITALS: BP_SYST 142
[2019-04-11] MEDS ORDERED: GENTAMICIN 80 MG/ ISO-OSM 100 ML PREMIX IV SCH (22:00)
== END 2019-04-11 20:45 | DRG 871 ==
LOC: SED 19:47 → SMU 04-04 00:55 → STU 04-05 16:51 → SMU 04-09 21:41
PROVIDERS: ADMIT Family Medicine; ATTEND Family Medicine
DX: A41.51 Sepsis due to Escherichia coli [E. coli] (principal); J18.9 Pneumonia, unspecified organism; E43 Unspecified severe protein-calorie malnutrition; J96.01 Acute respiratory failure with hypoxia; E87.1 Hypo-osmolality and hyponatremia; N10 Acute pyelonephritis; G93.40 Encephalopathy, unspecified; D64.9 Anemia, unspecified; B18.2 Chronic viral hepatitis C; F03.90 Unspecified dementia, unspecified severity, without behavioral disturbance, psychotic disturbance, mood disturbance, and anxiety; N40.0 Benign prostatic hyperplasia without lower urinary tract symptoms; B35.6 Tinea cruris; F70 Mild intellectual disabilities; E11.42 Type 2 diabetes mellitus with diabetic polyneuropathy; K74.60 Unspecified cirrhosis of liver; F29 Unspecified psychosis not due to a substance or known physiological condition; Z87.891 Personal history of nicotine dependence; Z87.01 Personal history of pneumonia (recurrent); Z68.35 Body mass index [BMI] 35.0-35.9, adult; Z79.899 Other long term (current) drug therapy
CPT/HCPCS: 36415; 36600; 71045; 76770; 80053; 80170-TC; 81000-TC; 82140-TC; 82803-TC; 82962; 83605; 83735-TC; 84100-TC; 85007; 85025; 85027; 86710; 87040-TC; 87081; 87086; 87186-TC; 92610-GN; 93970; 94640; 94760; 96365; 96367; 99285; G0378; J0456; J0696; J1030; J1580; J1630; J1650; J1815; J2930; J7030; J7050; J7512; J7612; J7620